=== PATIENT | male | born 1935 | race Hispanic/Latino ===

== ENCOUNTER 2018-05-11 20:09 | Emergency (ER) | payer OTHER, MEDICARE ==
[2018-05-11] MEDS ORDERED: Sodium Chloride 0.9% 1,000 ML IV STA ×2 (21:02→23:13)
[2018-05-11 21:15] LABS: BASO % 0.8 % (0.0-2.0); EOS # 0.2 K/uL (0.0-0.7); EOS % 3.3 % (0.0-4.0); HEMOGLOBIN 16.4 g/dL (12.0-18.0); LYMPH # 0.8 K/uL (1.0-4.3); MEAN CELL VOLUME 90.1 fl (80.0-94.0); MEAN CORPUSCULAR HEMOGLOBIN 30.9 pg (27.0-31.0); MEAN CORPUSCULAR HGB CONC 34.3 g/dL (33.0-37.0); MONO # 0.4 K/uL (0.0-0.8); MONO % 7.1 % (0.0-10.0); NEUT % 73.8 % (50.0-75.0); RBC 5.32 Mil/uL (4.40-5.90); RED CELL DISTRIBUTION WIDTH 13.7 % (11.5-14.5); WHITE BLOOD COUNT 5.4 K/uL (4.8-10.8)
[2018-05-11 21:28] LABS: VENOUS BLOOD GAS BASE EXCESS 2.9 mmol/L (0.0-2.0); VENOUS BLOOD GAS PCO2 54 mmHg (40-60); VENOUS BLOOD GAS PO2 32 mm/Hg (30-55); VENOUS BLOOD PH 7.35 (7.32-7.43)
[2018-05-11 21:33] LABS: ALB/GLOB RATIO 1.7 (1.0-2.1); ALBUMIN 4.7 g/dL (3.5-5.0); ALT/SGPT 35 U/L (21-72); AST/SGOT 27 U/L (17-59); BLOOD UREA NITROGEN 20 mg/dl (9-20); CALCIUM 10.3 mg/dL (8.4-10.2); GFR NON-AFRICAN AMERICAN > 60
--- NOTE | 2018-05-11 21:49 | ED PDOC ---
HPI: Abdomen Time Seen by Provider: 05/11/18 20:46 Chief Complaint (Nursing): Abdominal Pain Chief Complaint (Provider): Abdominal pain and vomiting History Per: Patient History/Exam Limitations: no limitations Onset/Duration Of Symptoms: Days (x2) Current Symptoms Are (Timing): Still Present Associated Symptoms: Fever, Vomiting Additional Complaint(s): 83 year old male, with a past medical history of stomach ulcers, type II diabetes, and hyperlipidemia, presents to the ED with 2 days of abdominal pain and vomiting. Patient states he is unable to tolerate food or drinks. He states he is feverish but has not taken his temperature. Patient has a history of stomach ulcers but is on no medications for it. He states stomach pain is similar to previous episodes of stomach ulcers. Patient is compliant with medications but has not taken any medications today because of vomiting and abdominal pain. Patient has recently moved to [place]. PMD: in [place] Past Medical History Reviewed: Historical Data, Nursing Documentation, Vital Signs Vital Signs: Last Vital Signs Temp 97 F L 05/11/18 20:26 Pulse 97 H 05/11/18 20:26 Resp 16 05/11/18 20:26 BP 110/70 05/11/18 20:26 Pulse Ox 98 05/11/18 20:26 - Medical History PMH: No Chronic Diseases - Surgical History Surgical History: No Surg Hx - Family History Family History: States: Unknown Family Hx - Allergies Allergies/Adverse Reactions: Allergies Allergy/AdvReac Type Severity Reaction Status Date / Time No Known Allergies Allergy Verified 05/11/18 20:30 Review of Systems ROS Statement: Except As Marked, All Systems Reviewed And Found Negative Constitutional: Positive for: Fever Gastrointestinal: Positive for: Vomiting, Abdominal Pain Physical Exam - Reviewed Nursing Documentation Reviewed: Yes Vital Signs Reviewed: Yes - Physical Exam Appears: Positive for: Well, No Acute Distress Head Exam: Positive for: ATRAUMATIC, NORMOCEPHALIC Skin: Positive for: Normal Color, Warm, Dry Eye Exam: Positive for: Normal appearance Neck: Positive for: Normal, Painless ROM Cardiovascular/Chest: Positive for: Regular Rate, Rhythm Respiratory: Positive for: Normal Breath Sounds. Negative for: Wheezing, Respiratory Distress Gastrointestinal/Abdominal: Positive for: Tenderness (suprapubic) Extremity: Positive for: Normal ROM Neurologic/Psych: Positive for: Alert, Oriented. Negative for: Motor/Sensory Deficits - Laboratory Results Result Diagrams: 05/11/18 21:08 05/11/18 21:08 Lab Results: pO2 32 mm/Hg (30-55) 05/11/18 21:16 VBG pH 7.35 (7.32-7.43) 05/11/18 21:16 VBG pCO2 54 mmHg (40-60) 05/11/18 21:16 VBG HCO3 26.1 mmol/L 05/11/18 21:16 VBG Total CO2 31.5 mmol/L (22-28) H 05/11/18 21:16 VBG O2 Sat (Calc) 61.4 % (40-65) 05/11/18 21:16 VBG Base Excess 2.9 mmol/L (0.0-2.0) H 05/11/18 21:16 VBG Potassium 4.0 mmol/L (3.6-5.2) 05/11/18 21:16 Sodium 137.0 mmol/L (132-148) 05/11/18 21:16 Chloride 99.0 mmol/L (98-107) 05/11/18 21:16 Glucose 122 mg/dL (75-110) H 05/11/18 21:16 Lactate 3.3 mmol/L (0.7-2.1) H 05/11/18 21:16 FiO2 21.0 % 05/11/18 21:16 Troponin I < 0.0120 ng/mL (0.00-0.120) 05/11/18 21:08 Total Bilirubin 1.3 mg/dl (0.2-1.3) 05/11/18 21:08 AST 27 U/L (17-59) 05/11/18 21:08 ALT 35 U/L (21-72) 05/11/18 21:08 Alkaline Phosphatase 65 U/L (38-126) 05/11/18 21:08 Total Protein 7.5 G/DL (6.3-8.2) 05/11/18 21:08 Albumin 4.7 g/dL (3.5-5.0) 05/11/18 21:08 Globulin 2.8 gm/dL (2.2-3.9) 05/11/18 21:08 Albumin/Globulin Ratio 1.7 (1.0-2.1) 05/11/18 21:08 - ECG O2 Sat by Pulse Oximetry: 98 (RA) Pulse Ox Interpretation: Normal Medical Decision Making Medical Decision Making: Initial Impression: work up for vomiting, influenza, GERD/viral illness Initial Plan: --Labs --Zofran --Famotidine --IV fluids --Chest X-ray --Flu swab --Reassess patient 2330 Pt with improved symptoms. Labs WNL. Pt states he feels better. Getting second liter of IV fluids and will give PO challenge. Most likely discharge home if passes PO challenge. 0045 Pt with improved symptoms and tolerating PO. Pt to be discharged and will follow up with PMD. return parameters discussed. Scribe Attestation: Documented by Onofre Gatica acting as a scribe for Lynette Barker MD. Provider Scribe Attestation: All medical record entries made by the Scribe were at my direction and personally dictated by me. I have reviewed the chart and agree that the record accurately reflects my personal performance of the history, physical exam, medical decision making, and the department course for this patient. I have also personally directed, reviewed, and agree with the discharge instructions and disposition. Disposition - Clinical Impression Clinical Impression: Vomiting alone - Disposition Disposition: Routine/Home Disposition Time: 00:45 Condition: IMPROVED Forms: [employer] (Danish)
[2018-05-12 03:53] VITALS: BP 120/66; PULSE 76; RESP 18; TEMP 97.4; O2SAT 97
--- NOTE | 2018-05-12 08:41 | RAD ---
Date of service: 05/11/2018 HISTORY: possible admission COMPARISON: None available. TECHNIQUE: Chest one view . FINDINGS: LUNGS: No focal consolidation is seen. PLEURA: No pleural effusion is identified. CARDIOVASCULAR: Heart size is within normal limits. Atherosclerotic calcifications present of the aorta. OSSEOUS STRUCTURES: Degenerative changes noted of the spine. VISUALIZED UPPER ABDOMEN: Unremarkable. OTHER FINDINGS: None. IMPRESSION: No acute cardiopulmonary process seen.
== END 2018-05-12 01:15 | disposition home or self-care (01) ==
LOC: H.ER 20:09
DX: R11.10 Vomiting, unspecified (principal); E11.9 Type 2 diabetes mellitus without complications; E78.5 Hyperlipidemia, unspecified
CPT/HCPCS: 71045; 80053; 82803; 82948; 84484; 85025; 87804; 96374; 96375; 99283; J2405; J7030